=== PATIENT | female | born 1955 | race Caucasian/White ===

== ENCOUNTER → 2025-04-10 | Outpatient (CLI) | payer BC, MEDICARE | END | disposition home or self-care (01) | LOC: MRI 00:23 | PROVIDERS: ATTEND Orthopaedic Surgery | DX: S83.241A Other tear of medial meniscus, current injury, right knee, initial encounter (principal); M17.0 Bilateral primary osteoarthritis of knee; M25.462 Effusion, left knee; M25.461 Effusion, right knee; X58.XXXA Exposure to other specified factors, initial encounter; Y93.89 Activity, other specified; Y92.89 Other specified places as the place of occurrence of the external cause; Y99.8 Other external cause status ==

== ENCOUNTER → 2025-06-17 | Outpatient (CLI) | payer BC, MEDICARE | END | disposition home or self-care (01) | LOC: US 10:30 | PROVIDERS: ATTEND Orthopaedic Surgery | DX: M79.604 Pain in right leg (principal) ==